=== PATIENT | female | born 1950 | race Caucasian/White ===

== ENCOUNTER 2019-12-12 22:17 | Emergency (ER) | payer MEDICARE, BC ==
[2019-12-12] MEDS ORDERED: Ketorolac 60 MG/2 ML SDV IM ONE (23:28)
--- NOTE | 2019-12-12 23:28 | EDM.PDOC ---
ED HPI GENERAL MEDICAL PROBLEM - General Chief Complaint: Lower Extremity Injury/Pain Stated Complaint: RT LOWER LEG PAIN Time Seen by Provider: 12/12/19 23:25 Source of Information: Reports: Patient History Limitations: Reports: No Limitations - History of Present Illness INITIAL COMMENTS - FREE TEXT/NARRATIVE: pt had a sudden onset of pain with movement of the rt knee. She tried to take a walk to get it to limber up and that made it worse. She has not had a fall or injuryr Onset: Today, Sudden Duration: Hour(s): Location: Reports: Lower Extremity, Right Associated Symptoms: Reports: No Other Symptoms - Related Data Allergies Allergy/AdvReac Type Severity Reaction Status Date / Time No Known Allergies Allergy Verified 12/12/19 22:39 Home Meds: Home Meds Ezetimibe 10 mg PO DAILY 12/12/19 [History] atorvaSTATin [Lipitor] 20 mg PO DAILY 12/12/19 [History] Past Medical History Cardiovascular History: Reports: High Cholesterol - Past Surgical History Female Surgical History: Reports: Hysterectomy Social & Family History - Tobacco Use Smoking Status *Q: Never Smoker Review of Systems - Review of Systems Review Of Systems: See Below Constitutional: Reports: No Symptoms Eyes: Reports: No Symptoms Ears: Reports: No Symptoms Nose: Reports: No Symptoms Mouth/Throat: Reports: No Symptoms Respiratory: Reports: No Symptoms Cardiovascular: Reports: No Symptoms GI/Abdominal: Reports: No Symptoms Genitourinary: Reports: No Symptoms Musculoskeletal: Reports: Other ( acute pain with movement of the rt knee. ) ED EXAM, GENERAL - Physical Exam Exam: See Below Free Text/Narrative:: pt arrived with pain in her rt knee when she flexes it and extends it. She feels like the joint is not working freely. She does not have swelling. This did come on suddenly. Exam Limited By: No Limitations General Appearance: Alert, Severe Distress Extremities: Other (sudden onset of severe pain with movement of the rt knee to flex or extend. Uncomfortable when she walks on the knee. ) Neurological: Alert, Oriented, Normal Cognition Course - Vital Signs Last Recorded V/S: Last Vital Signs Temp 36.7 C 12/12/19 22:46 Pulse 78 12/12/19 22:46 Resp 16 12/12/19 22:46 BP 159/76 H 12/12/19 22:46 Pulse Ox 95 12/12/19 22:46 - Orders/Labs/Meds Orders: Active Orders 24 hr Category Date Time Status Knee Min 4V Rt [CR] Stat Exams 12/12/19 23:24 Ordered Meds: Medications Discontinued Medications Generic Name Dose Route Start Last Admin Trade Name Kelby PRN Reason Stop Dose Admin Ketorolac Tromethamine 60 mg 12/12/19 23:28 12/12/19 23:33 Toradol IM 12/12/19 23:29 Not Given ONETIME ONE - Re-Assessments/Exams Free Text/Narrative Re-Assessment/Exam: 12/13/19 00:15 xray shows a good joint space and not alot of degenerative changes. She has slight posterior calcification. Departure - Departure Time of Disposition: 00:10 Disposition: Home, Self-Care 01 Condition: Fair Clinical Impression: Tear of meniscus of right knee - Discharge Information Referrals: PCP,None [Primary Care Provider] - Forms: ED Department Discharge Care Plan Goals: appt with Dr Baptiste on Saturday or saturday, cool pack, motrin 600mg qid, tylenol can be used inbetween, crutches, minimal wt bearing. Pt may need a MRI for further evaluation if symptoms persist. Sepsis Event Note (ED) - Evaluation Sepsis Screening Result: No Definite Risk - Focused Exam Vital Signs: Vital Signs Temp Pulse Resp BP Pulse Ox 12/12/19 22:46 36.7 C 78 16 159/76 H 95 12/12/19 22:36 36.7 C 78 16 159/76 H 95 - My Orders Last 24 Hours: My Active Orders 12/12/19 23:24 Knee Min 4V Rt [CR] Stat - Assessment/Plan Last 24 Hours: My Active Orders 12/12/19 23:24 Knee Min 4V Rt [CR] Stat
--- NOTE | 2019-12-14 09:34 | CR ---
Knee Min 4V Rt CLINICAL HISTORY: Pain FINDINGS: No acute fracture or dislocation is noted. There are no osseous lesions. Articular surfaces are smooth. There is mild prominence intercondylar eminence. There is mild patellar spurring. Impression: No fracture Mild osteoarthritic change
== END 2019-12-13 00:20 | disposition home or self-care (01) ==
LOC: JP.ED 22:17
DX: S83.206A Unspecified tear of unspecified meniscus, current injury, right knee, initial encounter (principal); E78.00 Pure hypercholesterolemia, unspecified; Z79.899 Other long term (current) drug therapy; X58.XXXA Exposure to other specified factors, initial encounter
CPT/HCPCS: 73564-26-RT; 73564-RT; 99283; 99283-25